=== PATIENT | male | born 1990 | race Caucasian/White ===

== ENCOUNTER 2025-04-18 20:30 | Emergency (ER) | payer MEDICAID, SELFPAY ==
[2025-04-18] VITALS (13 sets, daily range): BP systolic 152–233; BP diastolic 95–149; PULSE 60–85; RESP 16–17; TEMP 36.8; O2SAT 94–99; BMI 67.8
--- NOTE | 2025-04-18 20:39 | ECG_ITS ---
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
--- NOTE | 2025-04-18 21:00 | XRR_ITS ---
PROCEDURE INFORMATION: Exam: XR Chest Exam date and time: 04/18/2025 9:07 PM Age: 34 years old Clinical indication: Chest pressure and left-sided; Described as sharp stabbing pain and L arm tingling; Additional info: Cp TECHNIQUE: Imaging protocol: Radiologic exam of the chest. Views: 1 view. COMPARISON: No relevant prior studies available. FINDINGS: Lungs: Haziness of the bilateral lungs, could be related to low lung volumes though can not exclude mild edema or infiltrates, clinical correlation. Pleural spaces: Unremarkable. No pleural effusion. No pneumothorax. Heart/Mediastinum: Unremarkable. No cardiomegaly. Bones/joints: Unremarkable. XR/XR chest 1V portable [id number] IMPRESSION: No acute findings.
[2025-04-18] MEDS: labetalol 5 mg/mL SDV 20mL 20 MG IVP (21:21)
[2025-04-18] MEDS: nitroglycerin 1 gm/inch oint Pkt 1 INCH TOPICAL (21:21)
[2025-04-18 21:25] LABS: Hematocrit 41.6 % (37-53); Hemoglobin 13.20 g/dL (11.27-16.99); Mean Corpuscular HGB Conc 31.7 g/dL (30-55); Mean Corpuscular Hemoglobin 28.6 pg (27-33); Mean Corpuscular Volume 90.0 fl (82-101); Nucleated Red Blood Cells % 0 %; Platelet Count 333 10^3/cmm (157-399); Red Blood Count 4.62 10^6/uL (3.85-5.65); White Blood Count 10.44 10^3/uL (3.29-11.43)
[2025-04-18 21:34] LABS: Troponin(5th) Baseline 8 ng/L (0-15)
[2025-04-18 21:48] LABS: Alanine Aminotransferase 35 U/L (0-41); Albumin Level 4.5 g/dL (3.5-5.2); Alkaline Phosphatase 103 U/L (40-130); Anion Gap 19.0 (5-19); Aspartate Amino Transferase 33 U/L (0-40); Blood Urea Nitrogen 11 mg/dL (6-20); Calcium 9.3 mg/dL (8.5-10.5); Carbon Dioxide 27 mmol/L (22-29); Chloride 98 mmol/L (98-107); Creatinine Clr Calc Pharmacy 161.6090; Globulin 3.7 g/dL (1.3-4.6); Glucose 114 mg/dL (65-115); NT Pro B Type Natriuretic Pept 107 pg/mL (0-125); Osmolality Calculated 290 mOsm/kg (285-295); Potassium 4.0 mmol/L (3.5-5.1); Sodium 140 mmol/L (136-145); Total Protein 8.2 g/dL (6.6-8.7)
--- NOTE | 2025-04-18 22:30 | ED_ITS ---
HPI - Chest Pain 2 General: Chief Complaint: Chest Pain Stated Complaint: Chest Pain Time Seen by Provider: 04/18/25 20:49 History of Present Illness: Patient is a 34-year-old male who presents with chest pain that began approximately 1.5 hours prior to arrival. The pain started while at work at [employer] when he was bending down to lift something. Patient describes the pain as being located in the anterior chest area. He reports that the pain is intermittent, stating it stops for a while and then comes back. The patient denies any associated shortness of breath, fever, cough, or leg swelling. He denies any recent long car trips. The patient has no prior history of similar chest pain. Of note, patient has a history of hypertension but is not currently taking any medications for this condition. His blood pressure was noted to be elevated during the examination. Related Data Previous Rx's ?Medication ?Instructions ?Recorded amlodipine 10 mg tablet 10 mg PO DAILY #30 tabs 110 07/13 lisinopril 10 mg tablet 10 mg PO DAILY #30 tabs 110 07/13 Allergies Allergy/AdvReac Type Severity Reaction Status Date / Time No Known Allergies Allergy Verified 04/18/25 20:42 Review of Systems 2 Narrative: Constitutional: Denies fever Respiratory: Denies shortness of breath, cough Cardiovascular: Complains of chest pain; denies leg swelling All other systems: Not documented or negative Physical Exam 2 Const: COMMON NORMALS: no acute distress GENERAL APPEARANCE: cooperative; not ill appearing and not frail appearing NUTRITIONAL APPEARANCE: obese HENMT: COMMON NORMALS: normocephalic, atraumatic and Normal external nose present HEAD & SCALP: normocephalic and atraumatic FACE & SINUS: normal facial exam and face symmetric NOSE: Normal external nose present Eye: COMMON NORMALS: Equal, round and reactive pupils present and EOMs intact bilaterally PUPIL: Yes Equal, round and reactive pupils present Neck/C-Spine: GENERAL: Yes trachea midline Chest: CHEST: Yes Symmetrical chest wall rise Resp: COMMON NORMALS: normal respiratory effort, No retractions, No use of accessory muscles and clear to auscultation bilaterally AUSCULTATION: clear to auscultation bilaterally Cardio: COMMON NORMALS: regular rate and regular rhythm RATE: regular rate RHYTHM: regular rhythm GI: COMMON NORMALS: Normal to inspection, nondistended, normoactive bowel sounds present Extremity: COMMON NORMALS: no pedal edema Neuro: VANESSA COMA SCALE: document GCS findings [place] coma scale eye opening: Spontaneous Vanessa coma scale verbal response: Orientated Vanessa coma scale motor response: Obey commands [place] coma scale total score: 15 S ENSORY EXAM: Yes extremities (intact) Psych: COMMON NORMALS: speech normal SPEECH: Yes normal speech Skin: COMMON NORMALS: no rashes or lesions noted GENERAL SKIN EXAM: no rashes or lesions noted Course 2 Vital Signs: Vital signs: Vital Signs Temperature 98.2 F 04/18/25 20:33 Pulse Rate 71 04/19/25 00:29 Respiratory Rate 17 04/18/25 22:00 Blood Pressure 158/111 04/19/25 00:29 Pulse Oximetry 96 04/19/25 00:29 Oxygen Delivery Me thod Room Air 04/18/25 20:33 MDM - Chest Pain Medical Decision Making Blood pressure is significantly elevated on arrival. 230s over 140s. He is given labetalol and Vasotec with some improvement. Nitroglycerin was placed on his chest. Chest x-ray is negative. CBC is normal. BMP is normal. First troponin is 8. Liver enzymes are normal. EKG shows a sinus rhythm with a rate of 80. [place] is normal. Q waves are present in [address] wave elevation. Intervals are normal. Time is 2038 read at 2040 Pain is resolved. Blood pressure is much improved. 2-hour troponin did not elevate. Will be discharged. Lisinopril plus amlodipine for now. We will ask case management to find him a primary care physician for follow-up. He knows to return for return of pain despite treatment. He is stable currently Lab Data 04/18/25 21:11 04/18/25 21:11 Radiology Impressions Chest X-Ray 04/18/25 21:00 IMPRESSION: No acute findings. Laboratory Results WBC 10.44 10^3/uL (3.29-11.43) 04/18/25 21:11 RBC 4.62 10^6/uL (3.85-5.65) 04/18/25 21:11 Hgb 13.20 g/dL (11.27-16.99) 04/18/25 21:11 Hct 41.6 % (37-53) 04/18/25 21:11 MCV 90.0 fl (82-101) 04/18/25 21:11 MCH 28.6 pg (27-33) 04/18/25 21:11 MCHC 31.7 g/dL (30-55) 04/18/25 21:11 RDW 13.3 % (12.1-15.1) 04/18/25 21:11 Plt Count 333 10^3/cmm (157-399) 04/18/25 21:11 MPV 10.4 fL (7.4-10.4) 04/18/25 21:11 Neut % (Auto) 62.3 % 04/18/25 21:11 Lymph % (Auto) 30.1 % 04/18/25 21:11 [place] % (Auto) 5.7 % 04/18/25 21:11 Eos % (Auto) 0.7 % 04/18/25 21:11 Baso % (Auto) 0.6 % 04/18/25 21:11 Neut # (Auto) 6.52 10^3/uL (1.8-7.7) 04/18/25 21:11 Lymph # (Auto) 3.1 10^3/uL (0.8-4.8) 04/18/25 21:11 [place] # (Auto) 0.6 10^3/uL (0.2-0.9) 04/18/25 21:11 Eos # (Auto) 0.1 10^3/uL (0.0-0.8) 04/18/25 21:11 Baso # (Auto) 0.1 10^3/uL (0.0-0.1) 04/18/25 21:11 Nucleated RBC % (auto) 0 % 04/18/25 21:11 Nucleated RBCs # 0.0 /100WBC 04/18/25 21:11 Sodium 140 mmol/L (136-145) 04/18/25 21:11 Potassium 4.0 mmol/L (3.5-5.1) 04/18/25 21:11 Chloride 98 mmol/L (98-107) 04/18/25 21:11 Carbon Dioxide 27 mmol/L (22-29) 04/18/25 21:11 Anion Gap 19.0 (5-19) 04/18/25 21:11 BUN 11 mg/dL (6-20) 04/18/25 21:11 Creatinine 1.0 mg/dL (0.7-1.2) 04/18/25 21:11 GFR Calculation 85.0 mL/min (90-130) L 04/18/25 21:11 Glucose 114 mg/dL (65-115) 04/18/25 21:11 Calculated Osmolality 290 mOsm/kg (285-295) 04/18/25 21:11 Calcium 9.3 mg/dL (8.5-10.5) 04/18/25 21:11 Total Bilirubin 0.8 mg/dL (0.15-1.2) 04/18/25 21:11 AST 33 U/L (0-40) 04/18/25 21:11 ALT 35 U/L (0-41) 04/18/25 21:11 Alkaline Phosphatase 103 U/L (40-130) 04/18/25 21:11 Creatine Kinase 98 U/L (39-308) 04/18/25 21:11 Troponin T Baseline 8 ng/L (0-15) 04/18/25 21:11 Troponin T 120 Minute 8.12 ng/L (0-15) 04/18/25 22:44 Delta Troponin T 0.12 ABS# (0-10) 04/18/25 22:44 NT-Pro-B Natriuret Pep 107 pg/mL (0-125) 04/18/25 21:11 Total Protein 8.2 g/dL (6.6-8.7) 04/18/25 21:11 Albumin 4.5 g/dL (3.5-5.2) 04/18/25 21:11 Globulin 3.7 g/dL (1.3-4.6) 04/18/25 21:11 Urine Color Dark yellow (Yellow) A 04/18/25 22:34 Urine Appearance Clear (CLEAR) 04/18/25 22:34 Urine pH 5.5 (5-7) 04/18/25:34 Ur Specific [place] 1.023 (1.005-1.030) 04/18/25 22:34 Urine Protein 1+ (Negative) A 04/18/25 22:34 Urine Glucose (UA) Negative (Normal) 04/18/25 22:34 Urine Ketones Trace (Negative) 04/18/25 22:34 Urine Blood Negative (Negative) 04/18/25 22:34 Urine Nitrate Negative (Negative) 04/18/25 22:34 Urine Bilirubin Negative (Negative) 04/18/25 22:34 Urine Urobilinogen 1.0 mg/dL (Negative) 04/18/25 22:34 Ur Leukocyte Esterase Negative (Negative) 04/18/25 22:34 Urine RBC 0-2 /hpf (0-2) 04/18/25 22:34 Urine WBC 0-5 /hpf (0-5) 04/18/25 22:34 Ur Squamous Epith Cells 0-5 /hpf (0-5) 04/18/25 22:34 Amorphous Sediment Not Reportable 04/18/25 22:34 Urine Bacteria None seen /hpf (NONE) 04/18/25 22:34 Hyaline Casts 71.16 /lpf 04/18/25 22:34 Urine Mucus 3+ /hpf 04/18/25 22:34 Urine Opiates Screen Negative ng/mL (Negative) 04/18/25 22:34 Ur Barbiturates Screen Negative ng/mL (Negative) 04/18/25 22:34 Ur Phencyclidine Scrn Negative ng/mL (Negative) 04/18/25 22:34 Ur Amphetamines Screen Negative ng/mL (Negative) 04/18/25 22:34 U Benzodiazepines Scrn Negative ng/mL (Negative) 04/18/25 22:34 Urine Cocaine Screen Negative ng/mL (Negative) 04/18/25 22:34 U Marijuana (THC) Screen Negative ng/mL (Negative) 04/18/25 22:34 All radiology interpretation(s) finalized by discharge Discharge Plan Discharge Patient Disposition: Home Clinical Impression: Chest pain, Hypertension Condition: Stable Prescriptions: New lisinopril 10 mg tablet 10 mg PO DAILY Qty: 30 0RF amlodipine 10 mg tablet 10 mg PO DAILY Qty: 30 0RF Discharge Orders: Discharge ED (Routine); Ordered 04/19/25 Ordered By: Philippe Jane Patient Instructions: Chest Pain (ED), Hypertension (ED), Opioid Safety, Pain Management, Patient Portal & [facility] Instructions Activity Restrictions/Additional Instructions: Medication as directed. Return for repeated episodes of chest discomfort, shortness of breath, fever, cough, other concerning symptoms. You should get a call from case management next week regarding a follow-up appointment with a primary doctor. Check your blood pressure twice daily at home on medication. Bring those numbers to your doctor when you see them. Stand Alone Forms: Work/School Release Print Language: Luxembourgish Coding Level of Care Code ED Order Planner for Chg Fwd Heart Score HEART Score Components History: Slightly Suspicous EKG: Non-specific Changes Age: Less than 45 yrs Risk Factors: 1 or 2 Risk Factors Troponin: Baseline Trop <16 ng/L HEART Score RESULT HEART Score: 2
[2025-04-18 22:49] LABS: Glucose Urine UA Negative (Normal); Nitrate Urine Negative (Negative); Specific Gravity, Urine 1.023 (1.005-1.030)
[2025-04-18 22:54] LABS: Add Urine Microscopic? YES; Universal Test for UA Present (0)
[2025-04-18 22:58] LABS: PCP Screen Urine Negative (Negative)
[2025-04-18 23:05] LABS: Troponin 5 2HR 8.12 ng/L (0-15); Troponin 5 2HR Delta 0.12 ABS# (0-10)
[2025-04-19] VITALS: BP 180/107; O2SAT 96
[2025-04-19 00:15] VITALS: BP 166/120; O2SAT 97
[2025-04-19 00:29] VITALS: BP 158/111; PULSE 71; O2SAT 96
--- NOTE | 2025-04-21 17:53 | DCPLANNER ---
messaged [facility] to establish pcp
== END 2025-04-19 00:29 | disposition home or self-care (01) ==
PROVIDERS: Emergency Provider Emergency Medicine
DX: R07.9 Chest pain, unspecified (principal); I10 Essential (primary) hypertension
CPT/HCPCS: 36415; 71045; 80053; 80306; 81001; 82550; 83880; 84484; 85025; 93005; 96374; 96375; 99285; J3490; J9999

== ENCOUNTER 2025-05-21 13:27 | Emergency (ER) | payer MEDICAID, SELFPAY ==
[2025-05-21 13:48] VITALS: BP 164/93; PULSE 72; RESP 15; TEMP 36.8; O2SAT 96; BMI 67.3
[2025-05-21 14:58] VITALS: BP 150/91; PULSE 68; O2SAT 97
--- NOTE | 2025-05-21 15:12 | XR_ITS ---
WS: [id number] Exam: XR femur LT min 2V* [id number] Date/Time of Exam: 05/21/2025 3:17 PM Reason For Exam: leg pain No fracture noted. Normal soft tissues. Articular relationships at the knee and hip appear normal. XR/XR femur LT min 2V* [id number] IMPRESSION: 1. Negative LEFT femur.
--- NOTE | 2025-05-21 15:15 | W.ED.EXTPRO ---
HPI - Extremity Problem General: Chief complaint: Extremity Problem,Nontraumatic Stated complaint: L Thigh Pain and numbness and burning Time Seen by Provider: 05/21/25 14:44 Source: patient Mode of arrival: ambulatory Limitations: no limitations History of Present Illness: Patient is a 34-year-old male who presents to the emergency department complaining of left thigh pain and numbness for the past 3 weeks, worse over the past few days. No reported trauma or injury. He is still able to walk without difficulty. He has not taken any medications. He does a primary care has not followed up with them in regards to this. No significant back pain at this time but he states he has intermittently had back pain. MD Complaint: extremity pain and other (extremity numbness) Onset (ago): week(s) Pain Consistency: intermittent Location: left and lower extremity Associated symptoms: Deny chest pain, fever(s) or rash Related Data Previous Rx's ?Medication ?Instructions ?Recorded amlodipine 10 mg tablet 10 mg PO QDAY #30 tabs 05/06/25 ciprofloxacin HCl 0.3 % eye drops See Rx Instructions ophthalmic 05/20/25 (eye) .COMPLEX #2.5 mL lisinopril 40 mg tablet 40 mg PO QDAY #30 tabs 05/20/25 topiramate 25 mg tablet 25 mg PO DAILY #30 tabs 05/20/25 Allergies Allergy/AdvReac Type Severity Reaction Status Date / Time No Known Allergies Allergy Verified 05/21/25 13:57 Review of Systems General: Reports: 10 or more systems reviewed and unremarkable except in HPI and below Const: Denies: fever(s) or chills Card: Denies: chest pain Resp: Denies: dyspnea or productive cough GI: Denies: abdominal pain, nausea, vomiting or diarrhea : Denies: flank pain Musc: Reports: back pain and extremity pain; Denies: neck pain, extremity swelling, joint pain, joint swelling, joint redness, joint warmth, limited range of motion or muscle weakness Skin/Breast: Denies: rash Neuro: Reports: numbness in extremities; Denies: headache(s) or weakness in extremities PFS ED PFSH: Family History Father , Heart attack, age 38 Heart disease Social History Smoking and tobacco/nicotine status: never used tobacco/nicotine Physical Exam Const: COMMON NORMALS: no acute distress, patient oriented x3, no limitations, alert and well nourished NUTRITIONAL APPEARANCE: obese morbidly obese HENMT: COMMON NORMALS: normocephalic and atraumatic HEAD & SCALP: normocephalic and atraumatic Neck/C-Spine: COMMON NORMALS: full ROM, supple and no meningeal signs Extremity: COMMON NORMALS: normal to inspection, full ROM, capillary refill normal, no joint enlargement and no clubbing, cyanosis or edema Neuro: COMMON NORMALS: patient oriented x3, moves all extremities, no focal motor deficits and no sensory deficits noted SENSORIUM/ORIENTATION: Yes alert MENINGEAL SIGNS: Yes no meningeal signs Skin: COMMON NORMALS: no rashes or lesions noted GENERAL SKIN EXAM: no rashes or lesions noted Course Vital Signs: Vital signs: Vital Signs Temperature 98.3 F 05/21/25 13:48 Pulse Rate 68 05/21/25 14:58 Respiratory Rate 15 05/21/25 13:48 Blood Pressure 150/91 05/21/25 14:58 Pulse Oximetry 97 05/21/25 14:58 Oxygen Delivery Me thod Room Air 05/21/25 14:58 MDM - Extremity (Nontraumatic) Medical Decision Making Patient presented for evaluation of numbness in his left leg he has been bothering him for weeks but worse over the past couple of days. No direct trauma or other injuries noted. The exam unremarkable. X-ray of the left femoral area where he had noted pain was negative. Suspect lumbar radiculopathy due to his reports of intermittent pain, he had requested a work note. No further workup necessary in the ED at this time. Lab Data Radiology Impressions Femur X-Ray 05/21/25 15:12 IMPRESSION: 1. Negative LEFT femur. All radiology interpretation(s) finalized by discharge Discharge Plan Discharge Patient Disposition: Home Clinical Impression: Lumbar radiculopathy Condition: Stable Prescriptions: No Action amlodipine 10 mg tablet 10 mg PO QDAY Qty: 30 2RF lisinopril 40 mg tablet 40 mg PO QDAY Qty: 30 2RF ciprofloxacin HCl 0.3 % drops See Rx Instructions ophthalmic (eye) .COMPLEX Qty: 2.5 0RF Rx Instructions: put 1-2 drps in affected eye(s) every 2hr up to 8 times/day x2days; then 4 times/day x5days ophthalmic (eye) topiramate 25 mg tablet 25 mg PO DAILY Qty: 30 0RF Discharge Orders: Discharge ED (Routine); Ordered 05/21/25 Ordered By: Aubrey Nick Referrals: Daisha Brown NP [Primary Care Provider, Family Practice] Patient Instructions: Patient Portal & [facility] Instructions Activity Restrictions/Additional Instructions: Follow-up with primary care provider for further evaluation and if you continue to have symptoms. Work note attached. Stand Alone Forms: Work/School Release Print Language: Samoan Coding Level of Care Code ED Shipping Technician for Ramona Ortega
[2025-05-21] MEDS: orphenadrine 30 mg/mL Inj 2 mL 60 MG IM (15:46)
[2025-05-21 16:16] VITALS: BP 138/87; PULSE 65; O2SAT 98
== END 2025-05-21 16:17 | disposition home or self-care (01) ==
PROVIDERS: Emergency Provider Physician Assistant
DX: M54.16 Radiculopathy, lumbar region (principal)
CPT/HCPCS: 73552; 96372; 99284; J1100; J1885; J2360

== ENCOUNTER → 2025-06-05 13:05 | Outpatient (BNVA) | payer MEDICAID, SELFPAY | DX: J02.8 Acute pharyngitis due to other specified organisms (principal); B97.89 Other viral agents as the cause of diseases classified elsewhere | CPT/HCPCS: 87071; 87880 ==